=== PATIENT | female | born 1945 | race Caucasian/White ===

== ENCOUNTER → 2021-11-21 12:07 | Outpatient (BNVA) | payer MEDICARE, SELFPAY | PROVIDERS: Family Provider Nurse Practitioner Family; PCP Nurse Practitioner Family; Visit Provider Nurse Practitioner Family | DX: M25.521 Pain in right elbow (principal); E78.5 Hyperlipidemia, unspecified | CPT/HCPCS: 80053; 80061 ==

== ENCOUNTER → 2022-01-15 10:34 | Outpatient (BNVA) | payer MEDICARE, SELFPAY | PROVIDERS: Family Provider Nurse Practitioner Family; PCP Nurse Practitioner Family; Referring Provider Nurse Practitioner Family; Visit Provider Specialist | DX: G56.01 Carpal tunnel syndrome, right upper limb (principal) | CPT/HCPCS: 95908; 95909 ==

== ENCOUNTER → 2022-01-30 14:42 | Outpatient (BNVA) | payer MEDICARE, SELFPAY | PROVIDERS: Family Provider Nurse Practitioner Family; PCP Nurse Practitioner Family; Visit Provider Orthopaedic Surgery | DX: G56.01 Carpal tunnel syndrome, right upper limb (principal) | CPT/HCPCS: 99203; 99204 ==

== ENCOUNTER 2022-02-21 06:53 | Day surgery (SDC) | payer MEDICARE, SELFPAY ==
[2022-02-20 12:22] VITALS: BMI 33.3
--- NOTE | 2022-02-21 06:11 | ANES.PREANE2 ---
Pre-Anesthetic Assessment Height/Weight: Height 1.5 m Weight 74.843 kg Preop Diagnosis: carpal tunnel right hand Operation Date: 02/21/22 08:20 Proposed Procedures p right carpal tunnel release/ [id number],G56.01(Right) - Abilio Sanchez MD Familial anesthetic complications: Father was slow to wake up, no complications for patient Was Beta Tri taken within 24 hours: N/A Was Clonidine taken within 24 hours: N/A Social No alcohol and No tobacco Exam alert, oriented x 3, clear to auscultation bilaterally and regular rate & rhythm Airway Submandibular: within normal limits Cervical ROM: within normal limits Mallampati: Class III Comments: Comments: Upper dentures Pulmonary Sleep Apnea (Not treated ) CV/HEM None reported METS > 4 None reported Hepatic None reported GI Gastroesophageal Reflux Disease (Controlled today on home medications ) Metabolic Hyperlipidemia [facility] [place] Osteoarthritis/DJD Neuropsych Neuropathy Anesthetic Plan ASA status: 2 Anesthesia: Anesthesia Evaluation, General, MAC and Regional (specify below) ([place] block ) Other: We discussed risk and benefits of general, MAC, and regional ([place] block) anesthesia including PONV, sore throat (sometimes severe), corneal abrasion, positioning and peripheral nerve injuries, life threatening allergic reaction, LAST, post operative ICU admission requiring prolonged intubation, stroke, heart attack, , failed block, tourniquet pain/discomfort, possibility of recall of intraoperative stimuli including discomfort/pain/pressure. Patient consents to proceed with MAC and [place] block anesthesia with conversion to general if needed. Medications/Allergies Home Medications Medication Instructions Recorded Confirmed Last Taken Type omeprazole 20 mg capsule,delayed 20 mg PO DAILY 08/02/19 02/20/22 Unknown History release acetaminophen 325 mg capsule 325 mg PO QID PRN Cramps 11/21/21 02/20/22 Unknown History (Tylenol) loratadine 10 mg tablet (Claritin) 10 mg PO DAILY PRN Allergy Symptoms 11/21/21 02/20/22 Unknown History diclofenac sodium 1 % topical gel 2 g topical QID #100 grams 12/05/21 02/20/22 Unknown Rx (Voltaren Arthritis Pain) magnesium carbonate 250 mg capsule See Rx Instructions .Route .COMPLEX 12/05/21 02/20/22 Unknown History omega 5-wma-uxr-fish oil 1,000 mg 1 cap PO DAILY 12/05/21 02/20/22 Unknown History (120 mg-180 mg) capsule (Fish Oil) diphenhydramine HCl 25 mg capsule 25 mg PO ONCE PRN Itching 01/15/22 02/20/22 Unknown History ibuprofen 200 mg capsule 200 mg PO Q6H PRN Pain (Scale 01/15/22 02/20/22 Unknown History Score 7-10) trolamine salicylate 10 % topical 1 applic topical BID PRN Pain 01/15/22 02/20/22 Unknown History cream (Aspercreme) (Scale Score 1-3) Allergies Allergy/AdvReac Type Severity Reaction Status Date / Time Penicillins AdvReac rash Verified 02/21/22 07:20 [facility] Anesthesia Medical History (Updated 02/21/22 @ 07:32 by Pura Bo DO) GERD (gastroesophageal reflux disease) YOSEF (obstructive sleep apnea) Surgical History H/O brain surgery History of cholecystectomy History of partial hysterectomy Social History Smoking and tobacco status: former smoker Second hand smoke exposure: No Alcohol intake: never Desire information about alcohol rehabilitation?: No Counseling given: No Desire information about substance/drug rehabilitation?: No Data Anesthesia Cardiac Studies: No Data to Display
[2022-02-21 07:07] VITALS: BP 168/98; PULSE 87; RESP 18; TEMP 36.4; O2SAT 96
[2022-02-21] MEDS: sodium chloride 0.9% 1,000 ML 30 ML IV (07:54)
--- NOTE | 2022-02-21 07:55 | W.PM.OPSUD ---
Surgery/Procedure H&P Update DATE OF PROCEDURE: February 21, 2022 DATE H&P PERFORMED: 01/30/22 H&P UPDATE INFORMATION: I have reviewed H&P completed within last 30 days PREOP DIAGNOSIS: carpal tunnel right hand PLANNED PROCEDURE: Operation Date: 02/21/22 08:20 Proposed Procedures p right carpal tunnel release/ [id number],G56.01(Right) - Abilio Sanchez MD
[2022-02-21] MEDS: ceFAZolin 2,000 MG in sodium chloride 0.9% (plus) 50 ML 100 MG IV (08:11)
--- NOTE | 2022-02-21 08:53 | PM.OP ---
Operative Report Date of procedure: February 21, 2022 Pre-op diagnosis: Preop Diagnosis carpal tunnel right hand Post-op diagnosis: same Post-op diagnosis: Same Procedure done: Right carpal tunnel release Pathology: none sent Surgeon: Abilio Sanchez Anesthesia: Nerve Block ([place] block) Estimated blood loss (mL): 2 Tourniquet time (min): 20 Findings: No masses or space-occupying lesion seen in the right carpal tunnel Condition: stable Disposition: PACU Procedure: Patient was taken to the operating room and anesthesia provided by the anesthesia service. She was prepped and draped with the arm exposed. A timeout was performed. A 3 cm long incision was made in line with the fourth ray from the distal edge of the carpal tunnel extending proximally. The subcutaneous fat and palmar fascia was divided with a scalpel blade. Under loupe magnification the ulnar neurovascular bundle was identified distally. A hemostat could be passed under the transverse carpal ligament allowing the distal 25% to be divided. A slotted guide was then passed beneath the transverse carpal ligament and the middle 50% divided. Blunt scissors were then passed over the guide freeing the proximal ligament. The tourniquet was deflated. Hemostasis provided with electrocautery. Wound edges were infiltrated with 10 cc of a half percent Marcaine solution. Skin edges were reapproximated with 3-0 Prolene. Sterile dressings were applied. The patient was taken to the recovery room in stable condition
[2022-02-21 08:57] VITALS: BP 151/71; PULSE 81; RESP 12; TEMP 37.1; O2SAT 96
[2022-02-21 09:01] VITALS: BP 153/79; PULSE 81; RESP 14; TEMP 36.6; O2SAT 99
[2022-02-21 09:10] VITALS: BP 170/82; PULSE 82; RESP 18; TEMP 36.8; O2SAT 99
[2022-02-21 09:25] VITALS: BP 202/78; PULSE 82; RESP 18; O2SAT 97
--- NOTE | 2022-02-21 14:31 | ANE.PACU2 ---
Inpatient post-anesthesia follow up: Airway intact: Yes Vital signs: Temperature 98.3 F Pulse Rate 82 Respiratory Rate 18 Blood Pressure 170/82 Pulse Oximetry 97 Oxygen Delivery Me thod Room Air Oxygen Flow Rate Fraction of Inspir ed Oxygen Hydration adequate: Yes Nausea and vomiting: No Pain level: 1 Mental status: Baseline Additional Comments: Last patient BP elevated. Per bedside RN, prior to discharging patient the patient was in pain from BP cuff inflation and refused repeat BP preferring discharge.
== END 2022-02-21 09:40 | disposition home or self-care (01) ==
PROVIDERS: PCP Nurse Practitioner Family; Visit Provider Orthopaedic Surgery
PROC: (CPT 64721; principal; 2022-02-21 08:10)
DX: G56.01 Carpal tunnel syndrome, right upper limb (principal); G47.30 Sleep apnea, unspecified; K21.9 Gastro-esophageal reflux disease without esophagitis; E78.5 Hyperlipidemia, unspecified; M19.90 Unspecified osteoarthritis, unspecified site; G47.33 Obstructive sleep apnea (adult) (pediatric); Z87.891 Personal history of nicotine dependence
CPT/HCPCS: 64721; J2704; J3490; J7030

== ENCOUNTER → 2022-02-26 08:01 | Outpatient (BNVA) | payer MEDICARE, SELFPAY | PROVIDERS: PCP Nurse Practitioner Family; Visit Provider Nurse Practitioner Family | DX: Z98.890 Other specified postprocedural states (principal) | CPT/HCPCS: 99024 ==

== ENCOUNTER → 2022-03-07 08:09 | Outpatient (BNVA) | payer MEDICARE, SELFPAY | PROVIDERS: PCP Nurse Practitioner Family; Visit Provider Nurse Practitioner Family | DX: Z98.890 Other specified postprocedural states (principal) | CPT/HCPCS: 99024 ==

== ENCOUNTER → 2022-06-18 10:31 | Outpatient (BNVA) | payer MEDICARE, SELFPAY | PROVIDERS: PCP Nurse Practitioner Family; Visit Provider Orthopaedic Surgery | DX: M17.0 Bilateral primary osteoarthritis of knee (principal); Z98.890 Other specified postprocedural states | CPT/HCPCS: 20610; 99213; J0702; J3490 ==

== ENCOUNTER 2022-06-24 06:00 | Outpatient (RCR) | payer MEDICARE, SELFPAY | END 2022-07-02 23:59 | disposition home or self-care (01) | LOC: WPT 06:00 | PROVIDERS: PCP Nurse Practitioner Family; Visit Provider Orthopaedic Surgery | DX: G56.01 Carpal tunnel syndrome, right upper limb (principal) | CPT/HCPCS: 97110; 97161 ==

== ENCOUNTER → 2022-12-17 08:48 | Outpatient (BNVA) | payer MEDICARE, SELFPAY | PROVIDERS: PCP Nurse Practitioner Family; Visit Provider Nurse Practitioner Family | DX: L85.3 Xerosis cutis (principal); D22.5 Melanocytic nevi of trunk; L81.4 Other melanin hyperpigmentation; L82.1 Other seborrheic keratosis; L57.8 Other skin changes due to chronic exposure to nonionizing radiation; L82.0 Inflamed seborrheic keratosis; L91.8 Other hypertrophic disorders of the skin; L57.0 Actinic keratosis | CPT/HCPCS: 11102; 17000; 17003; 17110; 99213 ==

== ENCOUNTER → 2023-07-03 08:31 | Outpatient (BNVA) | payer MEDICARE, SELFPAY | PROVIDERS: PCP Nurse Practitioner Family; Visit Provider Nurse Practitioner Family | DX: L57.0 Actinic keratosis (principal); L82.0 Inflamed seborrheic keratosis; L57.8 Other skin changes due to chronic exposure to nonionizing radiation; D22.4 Melanocytic nevi of scalp and neck; L81.4 Other melanin hyperpigmentation; L82.1 Other seborrheic keratosis | CPT/HCPCS: 17000; 17110; 99213 ==

== ENCOUNTER → 2024-12-02 09:29 | Outpatient (BNVA) | payer MEDICARE, SELFPAY | PROVIDERS: PCP Nurse Practitioner Family; Visit Provider Nurse Practitioner Family | DX: E55.9 Vitamin D deficiency, unspecified (principal); E78.5 Hyperlipidemia, unspecified; Z13.6 Encounter for screening for cardiovascular disorders; Z79.899 Other long term (current) drug therapy | CPT/HCPCS: 80053; 80061; 81003; 82306; 83036; 84443; 85025; 87077; 87086; 87184 ==